=== PATIENT | female | born 1960 | race Caucasian/White ===

== ENCOUNTER 2016-09-10 13:42 | Emergency (ER) | payer SELFPAY ==
--- NOTE | 2016-09-14 18:43 | ER ---
ADMIT: 09/10/2016 RM/LOC: ER [facility] MR#: [id number] [facility] [address] [place], [place] [id number] RONNIE SMITH [address] [place] [address] Emergency Room Report SEX: F AGE: 56 : 1960 DATE: 09/10/2016 HISTORY OF PRESENT ILLNESS: The patient is a 56-year-old, female, who presents to the emergency room with fever and nausea for about 7 days. Her fever today is 103. She points to the abdomen. She does not have diarrhea, she denies that. She has had urinary frequency, and in the past she has had urinary tract infection. She also has a headache. PAST MEDICAL HISTORY: Kidney infection post tuberculosis. MEDICATIONS: See T-sheet. ALLERGIES: SEE T-SHEET. SOCIAL HISTORY: Alcohol occasionally. PHYSICAL EXAMINATION: VITAL SIGNS: Blood pressure 138/67, with a heart rate of 108, respirations 18, temp is 103, O2 saturation 94%. GENERAL: Mildly anxious. HEENT: Normal inspection. CV: Tachycardic. ABDOMEN: Soft. BACK: Right costovertebral tenderness. SKIN: Good color and turgor. EXTREMITIES: Well perfused. Oriented x4. LABORATORY DATA: Flu negative. UA; wbc's 82, rbc's 1, bacteria few, leukocytes 3+, and blood 1+. She was given a Rocephin 1 g IM. IMPRESSION: Urinary tract infection complicated, fever, nausea. The patient will be given Bactrim and Zofran and instructions for followup within 24 to 48 hours. If she is still not improved, return to the ER. KENDALL Lorenzo / aDrrell Antonio MD / meliton JOB #: [id number] CC: Darrell Antonio MD, Attending Physician
== END 2016-09-10 15:55 | disposition home or self-care (01) ==
LOC: ER 13:42
DX: N39.0 Urinary tract infection, site not specified (principal); K59.00 Constipation, unspecified